=== PATIENT | female | born 1945 | race Caucasian/White ===

== ENCOUNTER 2019-05-27 18:54 | Emergency (ER) | payer OTHER ==
[~2019-05-27] VITALS: Ht 160 cm; Wt 78.6 kg
--- NOTE | 2019-05-27 19:00 | NUR ---
BIB EMS FROM [facility] WHERE PT WAS TO BE SEEN FOR PERSISTANT ANXIETY. PT FOUND TO BE HYPERTENSIVE, HX OF SAME AND COMPLIANT WITH MEDICATIONS. SEEN AT [facility] TODAY AND MONDAY W SAME COMPLAINT, NEGATIVE HEAD CT MONDAY PER PT. DENIES CP/SOB/FLANK PAIN/BLOOD IN URINE/HEADACHE. NO GROSS NEURO DEFICITS NOTED. PT STATES THAT SHE "FINALLY TALKED HER PRIMARY IN TO PRESCRIBING HER XANAX TODAY. AFTER PICKING UP XANAX RX AT 1445, PT REPORTEDLY TOOK 3 TABLETS "BECAUSE I WAS SO ANXIOUS". PT HAS PSYCH APPT 06/04 FOR EVAL/RX. "THEY GAVE ME ATIVAN MONDAY- THAT HELPED". PT REPORTS TAKING CYMBALTA, TRAZODONE, AND AMBIEN QPM FOR SLEEP. BP/SPO2/ECG MONITORING IN PLACE. NSR ON MONITOR.
[2019-05-27] MEDS ORDERED: AMBIEN (19:08)
[2019-05-27] MEDS ORDERED: [UNRECOGNIZED DRUG - OTHER] (19:08)
[2019-05-27] MEDS ORDERED: ALPR0.25 PO (19:08)
[2019-05-27] MEDS ORDERED: TRAZODONE (19:08)
[2019-05-27] MEDS ORDERED: LOSARTAN (19:08)
[2019-05-27] MEDS ORDERED: CYMBALTA (19:08)
[2019-05-27] MEDS ORDERED: hydrALAzine 20 MG/ML, 1ML ONE ×2 (19:18→20:46)
[2019-05-27 19:28] LABS: BASOPHILS # (AUTO) 0.02 x10^3/uL (0-0.1); BASOPHILS % (AUTO) 0 % (0-1); EOSINOPHILS # (AUTO) 0.09 x10^3/uL (0-0.4); EOSINOPHILS % (AUTO) 1 % (1-7); LYMPHOCYTES # (AUTO) 1.76 x10^3/uL (1-3.4); LYMPHOCYTES % (AUTO) 22 % (22-44); MD NO; MEAN CORPUSCULAR HEMOGLOBIN 31.5 pg (27.0-34.8); MEAN CORPUSCULAR HGB CONC 33.6 g/dL (32.4-35.8); MEAN CORPUSCULAR VOLUME 93.7 fL (80-100); MEAN PLATELET VOLUME 7.8 fL (7.4-10.4); MONOCYTES # (AUTO) 0.65 x10^3/uL (0.2-0.8); MONOCYTES % (AUTO) 8 % (2-9); NEUTROPHILS # (AUTO) 5.41 x10^3/uL (1.8-6.8); NEUTROPHILS % (AUTO) 68 % (42-75); PLATELET COUNT 279 x10^3/uL (130-400); RED BLOOD COUNT 3.98 x10^6/uL (3.82-5.3); RED CELL DISTRIBUTION WIDTH 13.5 % (9.6-15.2)
[2019-05-27] MEDS ORDERED: hydrALAzine 20 MG/ML, 1ML IV ONE ×2 (19:30→20:30)
[2019-05-27 19:41] LABS: ALBUMIN 3.8 g/dL (3.4-5.0); ANION GAP 9 mmol/L (5-15); CALCIUM 8.9 mg/dL (8.5-10.1); CHLORIDE 96 mmol/L (98-107); CREATININE 0.95 mg/dL (0.55-1.02)
[2019-05-27 19:44] LABS: TROPONIN I < 0.015 ng/mL (0.000-0.045)
[2019-05-27] MEDS ORDERED: LORazepam 1MG TABLET ONE (20:15)
--- NOTE | 2019-05-27 20:24 | NUR ---
SLIGHT IMPROVEMENT IN BP AFTER RX. PO ATIVAN PROVIDED PER PT'S REQUEST, PO OKAY PER ERP. BP/SPO2/ECG MONITORING IN PLACE. SON AT BEDSIDE.
--- NOTE | 2019-05-27 20:29 | NUR ---
PT'S SON, MIKEY PRYOR [phone], CALL HIM IF PATIENT NEEDS AT [facility].
[2019-05-27] MEDS ORDERED: LORazepam 2 MG/ML, 1ML IVPush ONE (20:30)
--- NOTE | 2019-05-27 20:53 | NUR ---
CONFIRMED MEDICATION ORDER WITH ERP. PT MEDICATED W RPT HYDRALAZINE PER ERP ORDER. POC IS DC.
[2019-05-27 21:20] VITALS: BP 158/80
--- NOTE | 2019-05-27 21:20 | NUR ---
IMPROVEMENT IN BP CHARTED. PT DENIES DIZZINESS/WEAKNESS. DC EDUCATION PROVIDED, PT DEMONSTRATES UNDERSTANDING. PT TRANSFERED SELF TO WHEELCHAIR, WHEELED TO DC WITH RN AND SO. SO TO TRANSPORT PT HOME.
== END 2019-05-27 21:22 | disposition home or self-care (01) ==
LOC: ED 20:30
DX: I10 Essential (primary) hypertension (principal); R94.31 Abnormal electrocardiogram [ECG] [EKG]
CPT/HCPCS: 36415; 80048; 82040; 84484; 85025; 93005; 96374; 96375; 96376; 99285; J0360; J2060